=== PATIENT | female | born 1970 | race Two or more races ===

== ENCOUNTER 2018-02-27 09:33 | Day surgery (SDC) | payer OTHER ==
[2018-02-27 10:14] VITALS: BMI 27.4
--- NOTE | 2018-02-27 11:47 | PN ---
Progress Note (short form) - Note Progress Note: Post procedure patient complained of chest pressure / pain below left lower ribs , pain in epigastrium. Procedure was uneventful. Abdomen soft on exam and non tender. Advised ER evaluation of her pain complaints. Placed on NC O2. Advised patient and her son of plan. Called down to ER and spoke to attending. Will advise she continue protonix 20mg BID for now. eprescribed.
[2018-02-27 12:18] VITALS: BP 107/65; PULSE 59; TEMP 98
--- NOTE | 2018-03-05 12:11 | PATH ---
Surgical Pathology Report Patient Name: PADILLA GONZALES [facility]. Rec. #: [id number] /Age/Gender: 1970 (Age: 47) / F Account: [id number] Location: U-ENDOSCOPY Taken: 02/27/2018 Received: 02/28/2018 Reported: 03/05/2018 Physicians: Mathieu Agrawal D.O. Specimen(s) Received A: BX 2ND PORTION DUODENUM B: BX ANTRUM AND ANGULARIS C: BX BODY AND FUNDUS D: BX DISTAL ESOPHAGUS Clinical History Epigastric pain Postoperative diagnosis: Gastritis, esophageal plaque Final Diagnosis A. SECOND PORTION DUODENUM, BIOPSY: DUODENUM MUCOSA WITH MILD NONSPECIFIC DUODENITIS. NO HISTOLOGIC EVIDENCE OF INTRAEPITHELIAL LYMPHOCYTOSIS. B. ANTRUM AND ANGULARIS, BIOPSY: GASTRIC MUCOSA WITH ACTIVE CHRONIC GASTRITIS. IMMUNOSTAIN FOR H. PYLORI IS POSITIVE. NEGATIVE FOR INTESTINAL METAPLASIA. C. BODY AND FUNDUS, BIOPSY: GASTRIC MUCOSA WITH ACTIVE CHRONIC GASTRITIS. IMMUNOSTAIN FOR H. PYLORI IS POSITIVE. NEGATIVE FOR INTESTINAL METAPLASIA. D. DISTAL ESOPHAGUS PLAQUE, BIOPSY: ESOPHAGEAL MUCOSA WITH ACTIVE CHRONIC INFLAMMATION. PAS STAIN HIGHLIGHTED RARE FUNGAL HYPHAE, MORPHOLOGICALLY CONSISTENT WITH LAWANDA. Electronically Signed Cyndi Samuels M.D. Gross Description A. Received in formalin, labeled "biopsy duodenum second portion" are 3 haines, irregular portions of soft tissue ranging from 0.1-0.4 cm. in greatest dimension. The specimens are submitted in toto in one cassette. B. Received in formalin, labeled "biopsy antrum and angularis" are 4 haines, irregular portions of soft tissue ranging from 0.1-0.3 cm. in greatest dimension. The specimens are submitted in toto in one cassette. C. Received in formalin, labeled "biopsy body and fundus" are 4 haines, irregular portions of soft tissue ranging from 0.2-0.3 cm. in greatest dimension. The specimens are submitted in toto in one cassette. D. Received in formalin, labeled "biopsy distal esophagus plaque" is a haines, irregular portion of soft tissue measuring 0.4 cm. in greatest dimension. The specimen is submitted in toto in one cassette. 02/28/2018 saudi02/28/2018
== END 2018-02-27 12:00 | disposition short-term general hospital (02) ==
LOC: JASU-ENDO 09:33
PROVIDERS: ATTEND Internal Medicine Gastroenterology
PROC: 0DB68ZX Excision of Stomach, Via Natural or Artificial Opening Endoscopic, Diagnostic (ICD-10-PCS; 2018-02-27)
PROC: 0DB38ZX Excision of Lower Esophagus, Via Natural or Artificial Opening Endoscopic, Diagnostic (ICD-10-PCS; 2018-02-27)
PROC: 0DB98ZX Excision of Duodenum, Via Natural or Artificial Opening Endoscopic, Diagnostic (ICD-10-PCS; principal; 2018-02-27 09:30)
DX: K29.80 Duodenitis without bleeding (principal); K29.50 Unspecified chronic gastritis without bleeding; B96.81 Helicobacter pylori [H. pylori] as the cause of diseases classified elsewhere; B37.81 Candidal esophagitis
CPT/HCPCS: 84703; 88305-TC; 88312-TC; 88342-TC

== ENCOUNTER 2018-02-27 11:57 | Emergency (ER) | payer OTHER ==
--- NOTE | 2018-02-27 12:13 | PDOC ---
History of Present Illness - General Chief Complaint: Chest Pain Stated Complaint: CHEST PAIN Time Seen by Provider: 02/27/18 12:08 - History of Present Illness Initial Comments: 02/27/18 12:12 47 yo F with no significant pmh who p/w retrosternal chest pain following endoscopy. Patient reports acute onset of pressure type upper chest pain, and globus sensation following endoscopy today. Pain initially worse with swallowing. Pain and odynophagia now improved. Normal bowel habits, and appetite. Denies h/o similar pain. Patient reports onset of GI upset, epigastria pain beginning of January 2018 following starting Junivia medication for glycemic control. Discontinued medication end of January 2018. No findings on endoscopy today. Patient denies N/V, F/C, SOB, orthopnea, PND, leg pain, leg swelling, urinary complaints, abdominal pain, diarrhea, constipation, BPR, hematuria, lightheadedness, weakness, sensory changes. PMHx: as noted above. Denies h/o ACS/MT, stent placement, CABG, abnml stress testing. ROS: as noted SHx: Denies Etoh, IVDA, tobacco use. Allergies: NKDA PMD: Joel Yuan GI: Lul Murdock. On Protonix Past History - Past Medical History Allergies/Adverse Reactions: Allergies Allergy/AdvReac Type Severity Reaction Status Date / Time sulfamethoxazole Allergy Severe Rash Verified 02/27/18 12:16 [From Bactrim] trimethoprim [From Bactrim] Allergy Severe Rash Verified 02/27/18 12:16 Home Medications: Ambulatory Orders Glimepiride [Amaryl -] 1 mg PO DAILY 02/26/18 Famotidine [Pepcid] 1 tab PO DAILY 02/27/18 Anemia: Yes Diabetes: Yes (NIDDM) - Suicide/Smoking/Psychosocial Hx Smoking History: Never smoked Hx Alcohol Use: No Drug/Substance Use Hx: No Substance Use Type: None Hx Substance Use Treatment: No Review of Systems - Review of Systems Comments:: 02/27/18 12:13 GENERAL/CONSTITUTIONAL: No fever or chills. No weakness. HEAD, EYES, EARS, NOSE AND THROAT: No change in vision. No ear pain or discharge. CARDIOVASCULAR: + Neck and chest pain. No shortness of breath RESPIRATORY: No cough, wheezing, or hemoptysis. GASTROINTESTINAL: No nausea, vomiting, diarrhea or constipation. GENITOURINARY: No dysuria, frequency, or change in urination. MUSCULOSKELETAL: No joint or muscle swelling or pain. No neck or back pain. SKIN: No rash NEUROLOGIC: No headache, vertigo, loss of consciousness, or change in strength/ sensation. ENDOCRINE: No increased thirst. No abnormal weight change HEMATOLOGIC/LYMPHATIC: No anemia, easy bleeding, or history of blood clots. ALLERGIC/IMMUNOLOGIC: No hives or skin allergy. *Physical Exam - Physical Exam Comments: 02/27/18 12:13 GENERAL: Awake, alert, and fully oriented, in no acute distress HEAD: No signs of trauma, normocephalic, atraumatic EYES: PERRLA, EOMI, sclera anicteric, conjunctiva clear ENT: Hearing grossly normal, nares patent, oropharynx clear without exudates. Moist mucosa NECK: Normal ROM, supple, no lymphadenopathy, JVD, or masses LUNGS: No distress, speaks full sentences, clear to auscultation bilaterally HEART: Regular rate and rhythm, normal S1 and S2, no murmurs, rubs or gallops, peripheral pulses normal and equal bilaterally. ABDOMEN: Soft, nontender, normoactive bowel sounds. No guarding, no rebound. No masses EXTREMITIES : Normal inspection, Normal range of motion, no edema. No clubbing or cyanosis. NEUROLOGICAL: Cranial nerves II through XII grossly intact. Normal speech, normal gait, no focal sensorimotor deficits SKIN: Warm, Dry, normal turgor, no rashes or lesions noted ED Treatment Course - LABORATORY CBC & Chemistry Diagram: 02/27/18 13:50 02/27/18 13:50 Medical Decision Making - Medical Decision Making 02/27/18 12:55 47 yo F with no significant pmh who p/w retrosternal chest pain following endoscopy. HR 55, vitals otherwise wnl, AF. Physical exam unremarkable. R/o iatrogenic esophageal injury. Low suspicion nathan cantrell. Patient well appearing, and perfusing. Absent neuro deficits. ACS/MT r/o. R/o PNA. Will consider biliary disease, gastritis, esophagitis. Low suspicion colitis, pancreatitis, AAA, Ao dissection. ED Course: CBC,CMP, Lipase, Cardiac Pr. HCG, UA EKG, CXR 02/27/18 13:51 CXR: Unremarkable 02/27/18 14:24 EKG- Rate 52, absent PHYLICIA, STD. Normal interval duration and axis. 02/27/18 16:[address] Mccarty, patient does not require further imaging. Carafate reccomended. Repeat trop. 02/27/18 16:18 CBC, CMP: Unremarkable 02/27/18 16:48 Trop: Neg 02/27/18 18:25 repeat trop neg. Patient tolerating PO intake. stable for d/c with return precautions. advised to f/u with PMD. *DC/Admit/Observation/Transfer Diagnosis at time of Disposition: Chest pain Qualifiers: Chest pain type: unspecified Qualified Code(s): R07.9 - Chest pain, unspecified - Discharge Dispostion Disposition: HOME Condition at time of disposition: Stable Decision to Admit order: No - Referrals Referrals: Joel Yuan MD [Primary Care Provider] - - Patient Instructions Printed Discharge Instructions: DI for Chest Pain Additional Instructions: Please follow up with your primary care physician and Dr. Agrawal within 72 hours. Please return to the emergency department with any new, worsening or concerning symptoms. - Post Discharge Activity - Attestations Physician Attestion: 02/27/18 12:13 I attest to the information provided in this note.
[2018-02-27 12:16] VITALS: TEMP 98; BMI 29.2
[2018-02-27 14:11] LABS: BASO % 1.1 % (0-2.0); EOS % 2.9 % (0-4.5); HEMATOCRIT 33.2 % (32.4-45.2); HEMOGLOBIN 10.6 GM/dL (10.7-15.3); LYMPH % 32.9 % (8-40); MCH 21.4 pg (25.7-33.7); MEAN CELL VOLUME 66.8 fl (80-96); MEAN PLT VOLUME 8.4 fl (7.5-11.1); MONO % 6.8 % (3.8-10.2); NEUT % 56.3 % (42.8-82.8); PLATELET COUNT 231 K/MM3 (134-434); RBC 4.97 M/mm3 (3.60-5.2); RDW 15.5 % (11.6-15.6); WHITE BLOOD COUNT 7.3 K/mm3 (4.0-10.0)
[2018-02-27 15:12] LABS: ALBUMIN 3.7 g/dl (3.4-5.0); ALK PHOS 83 U/L (45-117); ANION GAP 6 MMOL/L (8-16); BILIRUBIN,TOTAL 0.3 mg/dL (0.2-1); BLOOD UREA NITROGEN 10 mg/dL (7-18); CALCIUM 9.4 mg/dL (8.5-10.1); CHLORIDE 103 mmol/L (98-107); CO2 29 mmol/L (21-32); CREATININE 0.5 mg/dL (0.55-1.3); GLUCOSE,RANDOM 119 mg/dL (74-106); POTASSIUM 4.2 mmol/L (3.5-5.1); SGOT/AST 17 U/L (15-37); SGPT/ALT 25 U/L (13-61); SODIUM 138 mmol/L (136-145); TOT PROT 7.4 g/dl (6.4-8.2)
[2018-02-27 15:24] LABS: ANISOCYTOSIS 2+; MACROCYTOSIS 0; PLATELET ESTIMATE NORMAL
--- NOTE | 2018-02-27 15:30 | EKG ---
Test Reason : Blood Pressure : / mmHG Vent. Rate : 052 BPM Atrial Rate : 052 BPM P-R Int : 146 ms QRS Dur : 080 ms QT Int : 448 ms P-R-T Axes : 012 004 008 degrees QTc Int : 416 ms SINUS BRADYCARDIA LOW VOLTAGE QRS CANNOT RULE OUT ANTERIOR INFARCT , AGE UNDETERMINED ABNORMAL ECG NO PREVIOUS ECGS AVAILABLE Confirmed by Best Mcbride MD ([id number]) on 02/27/2018 3:29:49 PM Referred By: Confirmed By:Best Mcbride MD
[2018-02-27] MEDS ORDERED: PANTOPRAZOLE SODIUM 40 MG VIAL IVPUSH ONE (15:53)
[2018-02-27] MEDS ORDERED: SUCRALFATE 1 GM/10 ML UNIT DOSE CUPS PO ONE (15:53)
[2018-02-27] MEDS ORDERED: SUCRALFATE 1 GM TABLET (FP) ONE (16:18)
--- NOTE | 2018-02-27 16:36 | PDOC ---
Attending Attestation - Resident Resident Name: Axel Martínez - ED Attending Attestation I have performed the following: I have examined & evaluated the patient, The case was reviewed & discussed with the resident, I agree w/resident's findings & plan, Exceptions are as noted - HPI HPI: 02/27/18 16:29 The patient is a 47 year old female, with a significant past medical history of endoscopy (today), who presents to the emergency department with chest pain underneath her ribs and painful swallowing immediately following an endoscopy with Dr. Agrawal today. Pt reports upon arrival to the ED she feels much better. She is currently asymptomatic. States the sxs lasted for about 20 mins. Pt called in by Dr. Agrawal, states he did distal esophageal and stomach biopsies and this may have been the source of the pain. The patient denies shortness of breath, headache and dizziness. The patient denies fever, chills, nausea, vomit, diarrhea and constipation. The patient denies dysuria, frequency, urgency and hematuria. Allergies: NKDA Social history: Denies toxic habits. PCP - Dr. Joel Yuan GI: Dr. Agrawal - Physicial Exam PE: 02/27/18 16:33 GENERAL: Awake, alert, and fully oriented, in no acute distress HEAD: No signs of trauma EYES: Sclera anicteric, conjunctiva clear ENT: Oropharynx clear without exudates. Moist mucosa NECK: Normal ROM, supple LUNGS: Breath sounds equal, clear to auscultation bilaterally. No wheezes, and no crackles. No palpable crepitus HEART: Regular rate and rhythm, normal S1 and S2, no murmurs, rubs or gallops ABDOMEN: Soft, nontender, normoactive bowel sounds. No guarding, no rebound. No masses EXTREMITIES: Normal range of motion, no edema. No erythema, or tenderness NEUROLOGICAL: Normal speech, cranial nerves intact, negative pronator drift, 5/ 5 strength in all 4 extremities, normal sensation to light touch in all 4 extremities, normal cerebellar exam, normal gait, normal tone SKIN: Warm, Dry, normal turgor, no rashes or lesions noted. - Medical Decision Making 02/27/18 16:36 47yo F hx DM presents to the ED with transient chest pain and pain swallowing after endoscopy. Pt now with no sxs. Vitals wnl. Low concern for esophageal injury as sxs have resolved, pt is tolerating PO. CXR clear with no evidence of pneumomediastinum. EKG non ischemic. WIll check trop x2, although low suspicion for ACS. Discomfort likely due to biopsies/endoscopy. Will reassess 02/27/18 17:54 trop neg x2 Pt asymptomatic during 6 hour obs in ED Tolerating PO No globus sensation Repeat vitals REturn precautions given I discussed the physical exam findings, ancillary test results and final diagnoses with the patient. I answered all of the patient's questions. The patient was satisfied with the care received and felt comfortable with the discharge plan and treatment plan. The patient will call their primary care physician within 24 hours to arrange follow-up and will return to the Emergency Department with any new, persistent or worsening symptoms. *DC/Admit/Observation/Transfer Diagnosis at time of Disposition: Chest pain Qualifiers: Chest pain type: unspecified Qualified Code(s): R07.9 - Chest pain, unspecified - Discharge Dispostion Disposition: HOME Condition at time of disposition: Stable Decision to Admit order: No - Referrals Referrals: Joel Yuan MD [Primary Care Provider] - - Patient Instructions Printed Discharge Instructions: DI for Chest Pain Additional Instructions: Please follow up with your primary care physician and Dr. Agrawal within 72 hours. Please return to the emergency department with any new, worsening or concerning symptoms. - Post Discharge Activity - Attestations Physician Attestion: 02/27/18 18:12 I, Dr. Jeanine Quevedo MD, attest that this document has been prepared under my direction and personally reviewed by me in its entirety. I further attest, that it accurately reflects all work, treatment, procedures and medical decision -making performed by me. Heart Score/ECG Review - History History: Slightly suspicious - Electrocardiogram EKG: Non specific repolarization disturbance - Age Age: 45-65 - Risk Factors Based on the list above the patient has:: 1-2 risk factors - Troponin Troponin: </= normal limit - Score Heart Score - Total: 3 #1 02/27/18 16:38 Twelve-lead EKG was performed and reviewed by me. Sinus bradycardia, rate 52. Normal axis. No ST elevations. T wave inversions in leads III and V2. Biphasic T -wave in lead V3.
[2018-02-27 16:41] LABS: LIPASE 161 U/L (73-393)
[2018-02-27 18:15] VITALS: BP 105/55; PULSE 76
== END 2018-02-27 18:33 | disposition home or self-care (01) ==
LOC: JER 11:57
DX: R07.89 Other chest pain (principal); Z98.890 Other specified postprocedural states; E11.9 Type 2 diabetes mellitus without complications; Z79.84 Long term (current) use of oral hypoglycemic drugs; D64.9 Anemia, unspecified; Z88.2 Allergy status to sulfonamides
CPT/HCPCS: 36415; 71045-TC-FY; 80053; 82550; 83690; 84484; 85025; 93005; 93010; 99282-25

== ENCOUNTER → 2018-04-11 | Emergency (ER) | payer OTHER ==
[~2018-04-11] MED LIST: OSELTAMIVIR PHOSPHATE 75 MG CAPSULE ONE; OSELTAMIVIR PHOSPHATE 75 MG CAPSULE PO ONE
[2018-04-11 22:30] VITALS: BP 119/63; PULSE 91; TEMP 99.3; BMI 29.2
[2018-04-12 00:26] LABS: VENOUS PC02 39.4 mmHg (38-52); VENOUS PH 7.4 (7.32-7.42); VENOUS PO2 37.5 mmHg (28-48)
--- NOTE | 2018-04-12 00:29 | PDOC ---
History of Present Illness - General Chief Complaint: Head/Neck problem Stated Complaint: NECK PAIN, R/O PNEUMONIA, REF BY Time Seen by Provider: 04/11/18 23:23 History Source: Patient, Family Exam Limitations: No Limitations Past History - Past Medical History Allergies/Adverse Reactions: Allergies Allergy/AdvReac Type Severity Reaction Status Date / Time sulfamethoxazole Allergy Severe Rash Verified 02/27/18 12:16 [From Bactrim] trimethoprim [From Bactrim] Allergy Severe Rash Verified 02/27/18 12:16 Home Medications: Ambulatory Orders Glimepiride [Amaryl -] 1 mg PO DAILY 02/26/18 Famotidine [Pepcid] 1 tab PO DAILY 02/27/18 Oseltamivir Phosphate [Tamiflu] 75 mg PO BID #10 capsule 04/12/18 Anemia: Yes COPD: No Diabetes: Yes (NIDDM) GI Disorders: Yes (gastric ulcer) - Suicide/Smoking/Psychosocial Hx Smoking History: Never smoked Have you smoked in the past 12 months: No Information on smoking cessation initiated: No Hx Alcohol Use: No Drug/Substance Use Hx: No Substance Use Type: None Hx Substance Use Treatment: No *Physical Exam - Vital Signs Last Vital Signs Temp Pulse Resp BP Pulse Ox 99.3 F 91 H 20 119/63 100 04/11/18 22:27 04/11/18 22:27 04/11/18 22:27 04/11/18 22:27 04/11/18 22:27 - Physical Exam General Appearance: No: Apparent Distress HEENT: positive: Normal ENT Inspection. negative: Muffled/Hoarse voice, Pharyngeal Erythema, Tonsillar Exudate, Tonsillar Erythema, Nasal Congestion, Rhinorrhea, TM Bulging, TM Erythema, Excessive drooling Neck: positive: Supple. negative: Rigid, Rigidity, Tender lateral, Tender midline Respiratory/Chest: positive: Lungs Clear, Normal Breath Sounds. negative: Respiratory Distress Cardiovascular: positive: Regular Rhythm, Regular Rate, S1, S2. negative: Murmur Gastrointestinal/Abdominal: positive: Normal Bowel Sounds, Soft. negative: Tender, Distended, Guarding, Rebound Extremity: positive: Other (Negative Kernigs and Brudzinski sign) Integumentary: positive: Normal Color Neurologic: positive: Fully Oriented, Alert, Normal Mood/Affect Moderate Sedation - Procedure Monitoring Vital Signs: Procedure Monitoring Vital Signs Temperature 99.3 F 04/11/18 22:27 Pulse Rate 91 H 04/11/18 22:27 Respiratory Rate 20 04/11/18 22:27 Blood Pressure 119/63 04/11/18 22:27 O2 Sat by Pulse Oximetry (%) 100 04/11/18 22:27 Heart Score/ECG Review #1 EKG NSR at 88 bpm, TWI lead III 04/12/18 02:54 ED Treatment Course - LABORATORY CBC & Chemistry Diagram: 04/12/18 00:47 04/12/18 00:47 - RADIOLOGY Radiology Studies Ordered: Category Date Time Status CHEST X-RAY PORTABLE* [RAD] Stat Radiology 04/12/18 00:13 Ordered Medical Decision Making - Medical Decision Making 47 y/o F hx of DM and PUD was sent by her PCP for concern for possible PNA vs meningitis. Patient just returned from [place] yesterday; states while on flight, after eating pizza, she starting having fever, productive cough (yellow phlegm), congestion, sore throat, ear pain, body aches, SOB and L sided chest pressure. She received oxygen and SL NTG on flight; states the oxygen helped with her symptoms. No longer having CP. Also having MARTINEZ and neck pain. Saw her PCP who started her on Ceftin and Azithromycin today (took 1st dose today). Denies vomiting, diarrhea, palpitations, dizziness, LOC. Patient last received Tylenol 325 mg around 7 PM Consider viral URI/flu/PNA; patient's neck supple; less suspicious for meningitis, but will consider if rest of workup is negative Labs, EKG, CXR, flu swab Consider PE given SOB after flight, though not tachycardic; D-dimer sent 04/12/18 00:32 CXR neg for PNA Patient flu positive D-dimer positive Patient had CTA chest done CTA chest: IMPRESSION: No acute findings No PE noted Patient given Tamiflu given fever started yesterday Stable for d/c 04/12/18 03:41 *DC/Admit/Observation/Transfer Diagnosis at time of Disposition: Influenza A - Discharge Dispostion Disposition: HOME Condition at time of disposition: Stable Decision to Admit order: No - Prescriptions Prescriptions: Oseltamivir Phosphate [Tamiflu] 75 mg PO BID #10 capsule - Referrals Referrals: Joel Yuan MD [Primary Care Provider] - 2 Days - Patient Instructions Printed Discharge Instructions: DI for Influenza -- Adult Additional Instructions: Thank you for choosing [facility]. It was a pleasure taking care of you. You were found to have the flu, for which you were started on Tamiflu Take Tylenol/Motrin to help with fever Be sure to stay hydrated - drink at least 2 L of water a day The flu can spread by cough Be sure to wash hands Follow-up with your PCP in 2-3 days Return to the Emergency Department if your symptoms worsen or persist, you have fever, shortness of breath, chest pain, severe abdominal pain, vomiting or other concerning symptoms. - Post Discharge Activity
[2018-04-12 01:21] LABS: BASO % 0.6 % (0-2.0); EOS % 0.8 % (0-4.5); HEMATOCRIT 28.5 % (32.4-45.2); HEMOGLOBIN 9.3 GM/dL (10.7-15.3); LYMPH % 26.4 % (8-40); MCHC 32.5 g/dl (32.0-36.0); MEAN CELL VOLUME 64.6 fl (80-96); MEAN PLT VOLUME 8.5 fl (7.5-11.1); MONO % 13.6 % (3.8-10.2); NEUT % 58.6 % (42.8-82.8); PLATELET COUNT 241 K/MM3 (134-434); RDW 16.1 % (11.6-15.6); WHITE BLOOD COUNT 4.9 K/mm3 (4.0-10.0)
[2018-04-12 01:30] LABS: INR 0.92 (0.83-1.09); PROTHROMBIN TIME (PATIENT) 10.9 SEC (9.7-13.0)
[2018-04-12 01:33] LABS: ACTIVATED PTT 25.5 SECONDS (25.2-36.5)
[2018-04-12 01:40] LABS: ALBUMIN 3.1 g/dl (3.4-5.0); ALK PHOS 72 U/L (45-117); ANION GAP 8 MMOL/L (8-16); BILIRUBIN,TOTAL 0.2 mg/dL (0.2-1); BLOOD UREA NITROGEN 8 mg/dL (7-18); CALCIUM 7.7 mg/dL (8.5-10.1); CHLORIDE 104 mmol/L (98-107); CO2 23 mmol/L (21-32); CREATININE 0.5 mg/dL (0.55-1.3); GLUCOSE,RANDOM 138 mg/dL (74-106); POTASSIUM 4.1 mmol/L (3.5-5.1); SGOT/AST 29 U/L (15-37); SGPT/ALT 36 U/L (13-61); SODIUM 136 mmol/L (136-145); TOT PROT 6.7 g/dl (6.4-8.2)
--- NOTE | 2018-04-12 16:17 | EKG ---
Test Reason : Blood Pressure : / mmHG Vent. Rate : 088 BPM Atrial Rate : 088 BPM P-R Int : 128 ms QRS Dur : 074 ms QT Int : 358 ms P-R-T Axes : 021 -07 017 degrees QTc Int : 433 ms NORMAL SINUS RHYTHM NORMAL ECG WHEN COMPARED WITH ECG OF 27-FEB-2018 12:28, VENT. RATE HAS INCREASED BY 36 BPM Confirmed by DAVID LEWIS MD ([id number]) on 04/12/2018 4:16:59 PM Referred By: Confirmed By:DAVID LEWIS MD
== END | disposition home or self-care (01) ==
LOC: JER 21:07
DX: J09.X2 Influenza due to identified novel influenza A virus with other respiratory manifestations (principal); E11.9 Type 2 diabetes mellitus without complications; K27.9 Peptic ulcer, site unspecified, unspecified as acute or chronic, without hemorrhage or perforation
CPT/HCPCS: 36415; 71045-TC-FY; 71275-TC; 80053; 82550; 82803; 83605; 84484; 84703; 85025; 85379; 85610; 85730; 87804; 93005; 93010; 99283-25

== ENCOUNTER 2020-11-11 04:26 | Day surgery (SDC) | payer OTHER ==
[2020-11-09 09:38] VITALS: BMI 30.2
[2020-11-11] MEDS ORDERED: KETOROLAC TROMETHAMINE 30 MG/1 ML VIAL ONE ×2 (10:02→11:28)
[2020-11-11] MEDS ORDERED: MIDAZOLAM HCL 2 MG/2 ML SINGLE DOSE VIAL ONE (10:04)
[2020-11-11] MEDS ORDERED: PROPOFOL 20 ML ONE (11:26)
[2020-11-11] MEDS ORDERED: LIDOCAINE HCL/PF 2% SDV 5ML VIAL ONE (11:28)
[2020-11-11] MEDS ORDERED: ACETAMINOPHEN 325 MG TABLET (FP) PO PRN (12:08)
[2020-11-11] MEDS ORDERED: IBUPROFEN 400 MG TABLET (FP) PO PRN (12:08)
[2020-11-11 14:47] VITALS: BP 139/77; PULSE 581; TEMP 97.8
== END 2020-11-11 14:45 | disposition home or self-care (01) ==
LOC: JASU-SURG 04:26
PROVIDERS: ATTEND Specialist
PROC: 0UDB7ZZ Extraction of Endometrium, Via Natural or Artificial Opening (ICD-10-PCS; principal; 2020-11-11 10:00)
PROC: 0UJD8ZZ Inspection of Uterus and Cervix, Via Natural or Artificial Opening Endoscopic (ICD-10-PCS; 2020-11-11 10:00)
DX: N95.0 Postmenopausal bleeding (principal); N88.2 Stricture and stenosis of cervix uteri; E11.40 Type 2 diabetes mellitus with diabetic neuropathy, unspecified
CPT/HCPCS: 81025; 86850; 86900; 86901; 94760